=== PATIENT | male | born 1985 | race African-American/Black ===

== ENCOUNTER 2023-12-20 18:40 | Emergency (ER) | payer OTHER ==
[~2023-12-20] VITALS: Ht 185.4 cm; Wt 96.4 kg
[2023-12-20 18:48] VITALS: BP 155/100; PULSE 79; TEMP 98.5; O2SAT 97
[2023-12-20 19:12] VITALS: RESP 16
[2023-12-20] MEDS: ketorolac tromethamine 15mg/ml inj. IM ONE (19:12)
[2023-12-20] MEDS: dexamethasone sod phosphate 10mg/ml inj PO STA (19:12)
[2023-12-20] MEDS ORDERED: IBUP-1984 PO (19:36)
[2023-12-20] MEDS ORDERED: PRED20TA PO (19:36)
[2023-12-20] MEDS ORDERED: CYCL-1 PO (19:36)
[2023-12-20] MEDS: diazepam 5mg tablet PO ONE (19:45)
== END 2023-12-20 19:51 | disposition home or self-care (01) ==
LOC: ER 18:42
DX: M54.12 Radiculopathy, cervical region (principal); Z79.899 Other long term (current) drug therapy; Z79.1 Long term (current) use of non-steroidal anti-inflammatories (NSAID)
CPT/HCPCS: 72125; 72128; 96372; 99285; J1100; J1885